=== PATIENT | female | born 1950 | race Caucasian/White ===

== ENCOUNTER 2018-07-24 13:20 | Emergency (ER) | payer BC, SELFPAY ==
[2018-07-24 13:21] VITALS: BP 128/76; PULSE 101; RESP 21; TEMP 36.6; O2SAT 98; BMI 26.4
[2018-07-24 13:40] VITALS: O2SAT 100
--- NOTE | 2018-07-24 14:07 | EKG12_ITS ---
Test Reason : SOB Blood Pressure : / mmHG Vent. Rate : 086 BPM Atrial Rate : 086 BPM P-R Int : 118 ms QRS Dur : 068 ms QT Int : 356 ms P-R-T Axes : 066 -42 038 degrees QTc Int : 426 ms Normal sinus rhythm Left axis deviation Possible Inferior infarct , age undetermined Abnormal ECG Confirmed by SHAY LOZADA, KIERA ([id number]), technical editor MARK ANDERSON ([id number]) on 07/26/2018 11:07:03 AM Referred By: ANGELES/MANDO Confirmed By:KIERA DAY MD
--- NOTE | 2018-07-24 14:07 | RAD_ITS ---
STUDY: X-RAY CHEST REASON FOR EXAM: Female, 68 years old. Shortness of breath TECHNIQUE: AP COMPARISON: None. FINDINGS: The lungs are clear and expanded. There is no demonstrated pleural abnormality. Normal size heart. Normal mediastinum and cassi. Normal visualized pulmonary arteries. There is atherosclerotic calcification of the aortic arch with tortuosity. Prior vertebral augmentation upper lumbar vertebral bodies. Normal visualized ribs, clavicles, and shoulders. There is no demonstrated abnormality of the visualized soft tissue structures of the upper abdomen. RAD/Chest 1 View (Portable) IMPRESSION: Nonacute portable x-ray examination of the chest. Electronically Signed: Tang Cho MD at 14:44 EDT , Service support ,
--- NOTE | 2018-07-24 14:16 | ED.VISSUMM ---
- ER Visit Summary Date of Service: 07/24/18 Chief Complaint: [] Cough shortness of breath for 2 weeks History of Present Illness: The patient is a 68 F [] patient has history of COPD she indicates she is been coughing for 2 weeks cough is dry nonproductive increasing shortness of breath despite using her inhaler, she has had no fever no abdominal pain no numbness weakness paresthesias, she has no history of SC PE or DVT her symptoms are not at all exertional they are related to harsh coughing she was unable to see her physicians and she came to the emergency department Physical Examination: [] 128/78 afebrile pulse ox 98% room air General, no distress resting comfortably HEENT is generally unremarkable The neck is supple no adenopathy Cardiovascular, regular rate and rhythm Lungs, clear bilateral Abdomen, soft nontender Extremities, no clubbing cyanosis or edema Neurologic, awake alert answering questions appropriately moving all 4 extremities Test Results: [] Emergency Department Course and Treatment: [] Clinically she looks well she is walking around the emergency department without difficulty, she has a harsh cough. There is dry nonproductive she has no orthopnea P PND no history of SC PE CHF screening labs aerosols Treatment Plan: [] His EKG shows a sinus with nothing acute all of the screening labs are unremarkable generally see those reports, chest x-ray per radiology all also generally unremarkable see that report I explained all the test results the patient, she is agreeable to discharge home at this time continue her inhaler Mucinex and she will follow with her family doctors return for change in symptoms Disposition: [] Home stable Impression: [] Cough exacerbation of COPD This note was generated with [employer] dictation software. It may contain incorrect words, spelling, and punctuation that were not noted in review of the chart prior to signing ED Disposition - Plan for ED Patient: Referrals: Sherif Keller MD [Primary Care Provider] -
[2018-07-24 14:19] VITALS: PULSE 92; RESP 20
[2018-07-24] MEDS: Ipratropium/Albuterol Sulfate 3 ML AMPUL.NEB INHALATION (14:19)
[2018-07-24 14:48] LABS: Absolute Lymphocyte Count 1.48 X10^3/ul (0.83-4.51); Absolute Neutrophil Count 2.1 X10^3/uL (2.0-7.7); Basophil# 0.05 X10^3/uL; Basophil% 1.2 % (0-1); Eosinophil# 0.07 X10^3/uL; Eosinophils% 1.7 % (0-5); Hematocrit 40.1 % (37-47); Hemoglobin 13.2 g/dl (12.0-15.0); Lymphocyte # 1.48 X10^3/ul (4.0); Lymphocyte % 36.7 % (19-41); Mean Corp Hgb Conc 32.9 g/gl (32-36); Mean Corpuscular Hgb 26.8 pg (27.0-32.0); Mean Corpuscular Volume 81.5 fL (81-99); Mean Platelet Vol. 9.5 fl (6.2-12.0); Monocyte# 0.35 X10^3/uL; Monocyte% 8.7 % (0-10); Neutrophil # 2.07 X10^3/uL (2.7-7.7); Neutrophil % 51.5 % (47-70); Platelet Count 234 K/mm3 (150-450); RBC Distribution Width CV 13.6 % (11.6-14.6); RBC Distribution Width SD 39.7 fl (35.1-43.9); Red Blood Count 4.92 M/mm3 (4.2-5.4)
[2018-07-24 14:52] LABS: POSITIVE COUNT NO; POSITIVE DIFFERENTIAL NO; POSITIVE MORPHOLOGY NO
[2018-07-24 15:05] LABS: Anion Gap 4 (5-15); BUN 14 mg/dL (7-18); BUN/Creat Ratio 15.1 RATIO (10-20); Calcium,Total 8.9 mg/dL (8.5-10.1); Chloride 105 mmol/L (98-107); Creatinine, Serum 0.93 mg/dL (0.55-1.02); EST Glomerular Filtration Rate 63 mL/min (>60); Est Glom Filt Rate - Afr Amer 77 mL/min (>60); Estimated Creatinine Clearance 42.47 ml/min; Glucose 105 mg/dL (74-106); Potassium 4.1 mmol/L (3.5-5.1); Sodium Level 137 mmol/L (136-145)
--- NOTE | 2018-07-24 15:42 | ED.DEP ---
ED Disposition - Plan for ED Patient: Instructions: ED COPD Flare Prescriptions: Albuterol Inhaler [Ventolin Hfa] 1 - 2 puff INHALATION Q4H PRN PRN #1 inhaler PRN Reason: Wheezing Referrals: Sherif Keller MD [Primary Care Provider] -
[2018-07-24 16:07] VITALS: BP 132/82; PULSE 77; RESP 18; O2SAT 100
== END 2018-07-24 16:15 | disposition home or self-care (01) ==
LOC: ED 15:37
PROVIDERS: Emergency Provider Emergency Medicine; Family Provider Family Medicine; PCP Family Medicine
DX: J44.1 Chronic obstructive pulmonary disease with (acute) exacerbation (principal); R06.02 Shortness of breath
CPT/HCPCS: 71045; 80048; 83880; 84484; 85025; 93005; 94640; 99285; A4216

== ENCOUNTER → 2024-01-26 | Outpatient (REF) | payer OTHER, SELFPAY ==
[2024-01-26 09:07] LABS: Hematocrit 30.4 % (37-47); Hemoglobin 9.5 g/dL (12.0-15.0); Mean Corp Hgb Conc 31.3 g/dL (32-36); Mean Corpuscular Hgb 25.7 pg (27.0-32.0); Mean Corpuscular Volume 82.2 fL (81-99); Mean Platelet Vol. 10.1 fl (6.2-12.0); POSITIVE MORPHOLOGY YES; Platelet Count 350 K/mm3 (150-450); RBC Distribution Width CV 21.2 % (11.6-14.6); RBC Distribution Width SD 62.3 fl (35.1-43.9); White Blood Count 6.4 K/mm3 (4.4-11.0)
[2024-01-26 09:17] LABS: Scan Indicated on CBC? Y/N YES- FLAGS NOTED
[2024-01-26 09:40] LABS: Anion Gap 9 (5-15); BUN 13 mg/dL (7-18); BUN/Creat Ratio 23.4 RATIO (10-20); Calcium,Total 8.4 mg/dL (8.5-10.1); Chloride 99 mmol/L (98-107); Creatinine, Serum 0.56 mg/dL (0.55-1.02); EST Glomerular Filtration Rate 113 mL/min (>60); Est Glom Filt Rate - Afr Amer 137 mL/min (>60); Glucose 84 mg/dL (74-106); Potassium 3.8 mmol/L (3.5-5.1); Sodium Level 130 mmol/L (136-145)
[2024-01-27 15:51] LABS: Pathologist Review Reviewed
== END ==
LOC: OLS.SANC 05:00
PROVIDERS: PCP Family Medicine
DX: E11.9 Type 2 diabetes mellitus without complications (principal)
CPT/HCPCS: 36415; 80048; 85027